=== PATIENT | female | born 1965 | race African-American/Black ===

== ENCOUNTER 2016-08-17 00:12 | Emergency (ER) | payer BC ==
[2016-08-17 00:34] VITALS: TEMP 98.5; BMI 36.0
[2016-08-17] MEDS ORDERED: ASPIRIN 81 MG CHEWABLE TABLETS PO ONE (00:37)
[2016-08-17] MEDS ORDERED: ADENOSINE 6 MG/2 ML VIAL IVPUSH ONE ×2 (00:37→00:38)
[2016-08-17] MEDS ORDERED: dilTIAZem HCL 30 MG TABLET (FP) ONE (00:40)
[2016-08-17] MEDS ORDERED: dilTIAZem HCL 125 MG/25 ML - 25 ML VIAL ONE (00:40)
[2016-08-17] MEDS ORDERED: dilTIAZem HCL 50 MG/10 ML - 10 ML VIAL IVPUSH ONE (00:46)
[2016-08-17] MEDS ORDERED: ASPIRIN 81 MG CHEWABLE TABLETS ONE (00:47)
[2016-08-17] MEDS ORDERED: dilTIAZem HCL 30 MG TABLET (FP) PO ONE (00:48)
[2016-08-17 00:49] VITALS: PULSE 78
[2016-08-17 00:49] LABS: BASOPHIL 1.2 % (0-2.0); EOSINOPHIL 3.1 % (0-4.5); MCH 30.5 pg (25.7-33.7); MCHC 32.8 g/dl (32.0-36.0); MEAN PLT VOLUME 8.2 fl (7.5-11.1); NEUTROPHILS 57.8 % (42.8-82.8); PLATELET COUNT 268 K/MM3 (134-434); RDW 14.4 % (11.6-15.6)
[2016-08-17 01:16] LABS: ALBUMIN 3.7 g/dl (3.4-5.0); ANION GAP 11 (8-16); BILIRUBIN,TOTAL 0.7 mg/dL (0.2-1.0); CO2 25 mmol/L (21-32); CREATININE 0.8 mg/dL (0.55-1.02); GLUCOSE,RANDOM 149 mg/dL (74-106); MAGNESIUM 2.2 mg/dL (1.8-2.4); PHOSPHOROUS 3.7 mg/dL (2.5-4.9); SGOT/AST 44 U/L (15-37); SGPT/ALT 44 U/L (12-78); TOT PROT 7.5 g/dl (6.4-8.2)
[2016-08-17 01:19] LABS: ALK PHOS 74 U/L (45-117); TROPONIN I < 0.02 ng/ml (0.00-0.05)
[2016-08-17 01:52] VITALS: BP 127/88
--- NOTE | 2016-08-17 01:53 | PDOC ---
History of Present Illness - History of Present Illness Initial Comments: 08/17/16 01:54 Patient is a 50 year old female with significant medical hx of SVT and MS who is presenting to the ED with palpitations since 7PM this evening. The patient reports she was sitting down having dinner when her heart began to flutter. The patient went upstairs to take her medication but her symptoms continued. She states that when her palpitations progressed, she began feeling short of breath and sweating profusely. PMD: Violet Kirkpatrick MD <Arti Freeman - Last Filed: 08/17/16 01:54> <Oscar Templeton - Last Filed: 08/17/16 02:53> - General Chief Complaint: Palpitations Stated Complaint: PALPITATIONS Past History <Arti Freeman - Last Filed: 08/17/16 01:54> - Past Medical History Cardiac Disorders: Yes (TACHYCARDIA.) CHF: No DVT: No - Surgical History Abdominal Surgery: No Appendectomy: No Cardiac Surgery: No - Psycho/Social/Smoking Cessation Hx Suicidal Ideation: No Smoking Status: No Smoking History: Never smoked Have you smoked in the past 12 months: No Number of Cigarettes Smoked Daily: 0 Hx Alcohol Use: No Drug/Substance Use Hx: Yes Substance Use Type: None Hx Substance Use Treatment: No <Oscar Templeton - Last Filed: 08/17/16 02:53> - Past Medical History Allergies/Adverse Reactions: Allergies Allergy/AdvReac Type Severity Reaction Status Date / Time Penicillins Allergy Swelling Verified 08/17/16 00:33 Home Medications: Ambulatory Orders Metoprolol Succinate [Toprol XL -] 50 mg PO DAILY 04/20/12 Review of Systems - Review of Systems Comments:: 08/17/16 01:54 GENERAL/CONSTITUTIONAL: Sweating. No fever or chills. No weakness. HEAD, EYES, EARS, NOSE AND THROAT: No change in vision. No ear pain or discharge. No sore throat. CARDIOVASCULAR: Palpitations, shortness of breath. No chest pain. RESPIRATORY: No cough, wheezing, or hemoptysis. GASTROINTESTINAL: No nausea, vomiting, diarrhea or constipation. GENITOURINARY: No dysuria, frequency, or change in urination. MUSCULOSKELETAL: No joint or muscle swelling or pain. No neck or back pain. SKIN: No rash NEUROLOGIC: No headache, vertigo, loss of consciousness, or change in strength/ sensation. <PeteArti - Last Filed: 08/17/16 01:54> *Physical Exam - Vital Signs Last Vital Signs Temp Pulse Resp BP Pulse Ox 98.5 F 78 16 127/88 100 08/17/16 00:33 08/17/16 01:52 08/17/16 01:52 08/17/16 01:52 08/17/16 01:52 - Physical Exam Comments: 08/17/16 01:55 GENERAL: Comfortable. Awake, alert, and fully oriented, in no acute distress HEAD: No signs of trauma EYES: PERRLA, EOMI, sclera anicteric, conjunctiva clear ENT: Auricles normal inspection, hearing grossly normal, nares patent, oropharynx clear without exudates. Moist mucosa NECK: Normal ROM, supple, no lymphadenopathy, JVD, or masses LUNGS: Breath sounds equal, clear to auscultation bilaterally. No wheezes, and no crackles HEART: Regular rate and rhythm, normal S1 and S2, no murmurs, rubs or gallops ABDOMEN: Soft, nontender, normoactive bowel sounds. No guarding, no rebound. No masses EXTREMITIES: Normal range of motion, no edema. No clubbing or cyanosis. No cords, erythema, or tenderness NEUROLOGICAL: Cranial nerves II through XII grossly intact. Normal speech, normal gait SKIN: Warm, Dry, normal turgor, no rashes or lesions noted. ENDOCRINE: No increased thirst. No abnormal weight change. HEMATOLOGIC/LYMPHATIC: No anemia, easy bleeding, or history of blood clots. ALLERGIC/IMMUNOLOGIC: No hives or skin allergy. <Arti Freeman - Last Filed: 08/17/16 01:54> - Vital Signs Last Vital Signs Temp Pulse Resp BP Pulse Ox 98.5 F 78 16 123/88 100 08/17/16 00:33 08/17/16 00:48 08/17/16 00:48 08/17/16 00:48 08/17/16 00:48 <Oscar Templeton - Last Filed: 08/17/16 02:53> ED Treatment Course - LABORATORY CBC & Chemistry Diagram: 08/17/16 00:33 08/17/16 00:33 - ADDITIONAL ORDERS Additional order review: Laboratory Results 08/17/16 08/17/16 00:33 00:33 INR 1.00 Sodium 143 Potassium 4.1 Chloride 107 Carbon Dioxide 25 Anion Gap 11 BUN 22 H D Creatinine 0.8 D Creat Clearance w eGFR > 60 Random Glucose 149 H Calcium 9.0 Phosphorus 3.7 Magnesium 2.2 Total Bilirubin 0.7 AST 44 H D ALT 44 D Alkaline Phosphatase 74 Creatine Kinase 127 Troponin I < 0.02 B-Natriuretic Peptide 120.43 Total Protein 7.5 Albumin 3.7 08/17/16 00:33 RBC 4.32 MCV 93.0 MCHC 32.8 RDW 14.4 MPV 8.2 Neutrophils % 57.8 Lymphocytes % 30.0 Monocytes % 7.9 Eosinophils % 3.1 D Basophils % 1.2 - Medications Given in the ED: ED Medications Discontinued Medications Generic Name Dose Route Start Last Admin Trade Name Jose Aq PRN Reason Stop Dose Admin Adenosine 6 mg 08/17/16 00:37 08/17/16 00:59 Adenocard - IVPUSH 08/17/16 00:38 Not Given ONCE ONE Aspirin 324 mg 08/17/16 00:37 08/17/16 00:46 Asa - PO 08/17/16 00:38 324 mg ONCE ONE Administration Diltiazem HCl 20 mg 08/17/16 00:46 08/17/16 00:46 Cardizem Injection - IVPUSH 08/17/16 00:47 20 mg NOW ONE Administration Diltiazem HCl 30 mg 08/17/16 00:48 08/17/16 00:48 Cardizem - PO 08/17/16 00:49 30 mg NOW ONE Administration <Arti Freeman - Last Filed: 08/17/16 01:54> - LABORATORY CBC & Chemistry Diagram: 08/17/16 00:33 08/17/16 00:33 - ADDITIONAL ORDERS Additional order review: Laboratory Results 08/17/16 08/17/16 00:33 00:33 INR 1.00 Sodium 143 Potassium 4.1 Chloride 107 Carbon Dioxide 25 Anion Gap 11 BUN 22 H D Creatinine 0.8 D Creat Clearance w eGFR > 60 Random Glucose 149 H Calcium 9.0 Phosphorus 3.7 Magnesium 2.2 Total Bilirubin 0.7 AST 44 H D ALT 44 D Alkaline Phosphatase 74 Creatine Kinase 127 Troponin I < 0.02 B-Natriuretic Peptide 120.43 Total Protein 7.5 Albumin 3.7 08/17/16 00:33 RBC 4.32 MCV 93.0 MCHC 32.8 RDW 14.4 MPV 8.2 Neutrophils % 57.8 Lymphocytes % 30.0 Monocytes % 7.9 Eosinophils % 3.1 D Basophils % 1.2 - Medications Given in the ED: ED Medications Discontinued Medications Generic Name Dose Route Start Last Admin Trade Name Chad PRN Reason Stop Dose Admin Adenosine 6 mg 08/17/16 00:37 08/17/16 00:59 Adenocard - IVPUSH 08/17/16 00:38 Not Given ONCE ONE Aspirin 324 mg 08/17/16 00:37 08/17/16 00:46 Asa - PO 08/17/16 00:38 324 mg ONCE ONE Administration Diltiazem HCl 20 mg 08/17/16 00:46 08/17/16 00:46 Cardizem Injection - IVPUSH 08/17/16 00:47 20 mg NOW ONE Administration Diltiazem HCl 30 mg 08/17/16 00:48 08/17/16 00:48 Cardizem - PO 08/17/16 00:49 30 mg NOW ONE Administration <Oscar Templeton S - Last Filed: 08/17/16 02:53> Medical Decision Making - Medical Decision Making 08/17/16 01:53 08/17/16 02:48 50yo F with SVT and palpitations with no other symptoms tonight. She had taken a metoprolol which did not help. She had been in SVT with likely Aflutter RVR and this was successfully treated with metoprolol 10mg IVP boluses; she has a negative evaluation and is now in NSR with no decompensation. She will be given ASA. I have discussed the case with the PMD who agrees the patient can be safely discharged at this time with follow up with the PMD within the next 12 hours. I have encouraged her to return if there is any change and to take another metoprolol tablet if there is any return of her palpitations. EKG and CXR reassuring. <Oscar Templeton S - Last Filed: 08/17/16 02:53> *DC/Admit/Observation/Transfer - Attestations Scribe Attestion: 08/17/16 01:55 Documentation prepared by Arti Freeman, acting as medical genetics director for Oscar Templeton MD. <Arti Freeman - Last Filed: 08/17/16 01:54> - Discharge Dispostion Admit: No Decision to Admit order Date/Time: 08/17/16 01:52 - Attestations Physician Attestion: 08/17/16 01:52 I, Dr. Oscar Templeton MD, attest that this document has been prepared under my direction and personally reviewed by me in its entirety. I further attest, that it accurately reflects all work, treatment, procedures and medical decision -making performed by me. <Oscar Templeton - Last Filed: 08/17/16 02:53> Diagnosis at time of Disposition: Paroxysmal SVT (supraventricular tachycardia) - Discharge Dispostion Disposition: HOME Condition at time of disposition: Good - Referrals Referrals: Violet Kirkpatrick MD [Primary Care Provider] - - Patient Instructions Additional Instructions: Please follow up with your PMD within the next 12 hours and if there is any change otherwise in your symptoms, please return immediately to the ED. - Post Discharge Activity Work/School Note: Back to Work
[2016-08-17 02:37] LABS: FREE T4 1.09 ng/dl (0.76-1.46); THYROID STIMULATING HORMONE 0.76 uIU/ml (0.358-3.74)
--- NOTE | 2016-08-18 17:12 | EKG ---
Test Reason : Blood Pressure : / mmHG Vent. Rate : 159 BPM Atrial Rate : 170 BPM P-R Int : 000 ms QRS Dur : 108 ms QT Int : 300 ms P-R-T Axes : 000 031 -18 degrees QTc Int : 488 ms SUPRAVENTRICULAR TACHYCARDIA INCOMPLETE RIGHT BUNDLE BRANCH BLOCK NONSPECIFIC T WAVE ABNORMALITY ABNORMAL ECG WHEN COMPARED WITH ECG OF 05-SEP-2014 09:32, VENT. RATE HAS INCREASED BY 96 BPM NOTE RHYTHM CHANGE Confirmed by GABRIEL WILLINGHAM MD ([id number]) on 08/18/2016 5:11:45 PM Referred By: Confirmed By:GABRIEL WILLINGHAM MD
--- NOTE | 2016-08-21 10:13 | EKG ---
Test Reason : Blood Pressure : / mmHG Vent. Rate : 082 BPM Atrial Rate : 082 BPM P-R Int : 172 ms QRS Dur : 096 ms QT Int : 366 ms P-R-T Axes : 050 027 000 degrees QTc Int : 427 ms NORMAL SINUS RHYTHM POSSIBLE LEFT ATRIAL ENLARGEMENT RSR' OR QR PATTERN IN V1 SUGGESTS RIGHT VENTRICULAR CONDUCTION DELAY NONSPECIFIC T WAVE ABNORMALITY ABNORMAL ECG Confirmed by AALIYAH GOYAL MD ([id number]) on 08/21/2016 10:13:06 AM Referred By: Confirmed By:AALIYAH GOYAL MD
--- NOTE | 2016-08-21 10:15 | EKG ---
Test Reason : Blood Pressure : / mmHG Vent. Rate : 088 BPM Atrial Rate : 082 BPM P-R Int : 162 ms QRS Dur : 094 ms QT Int : 342 ms P-R-T Axes : 052 030 -17 degrees QTc Int : 413 ms SINUS RHYTHM WITH MARKED SINUS ARRHYTHMIA WITH FUSION COMPLEXES Paroxysmal supraventricular tachycardia NONSPECIFIC T WAVE ABNORMALITY ABNORMAL ECG Confirmed by AALIYAH GOYAL MD ([id number]) on 08/21/2016 10:14:35 AM Referred By: Confirmed By:AALIYAH GOYAL MD
== END 2016-08-17 01:57 | disposition home or self-care (01) ==
LOC: JER 00:12
PROC: 3E033GC Introduction of Other Therapeutic Substance into Peripheral Vein, Percutaneous Approach (ICD-10-PCS; principal; 2016-08-17)
DX: I47.1 Supraventricular tachycardia (principal)
CPT/HCPCS: 36415; 80053; 82550; 83735; 83880; 84100; 84439; 84443; 84481; 84484; 85025; 85610; 86850; 86900; 86901; 93005; 93010; 99283-25

== ENCOUNTER 2017-01-24 22:30 | Emergency (ER) | payer BC ==
--- NOTE | 2017-01-24 22:36 | PDOC ---
History of Present Illness - General Chief Complaint: Tachycardia Stated Complaint: RAPID HEART BEAT Time Seen by Provider: 01/24/17 22:34 - History of Present Illness Initial Comments: This 51-year-old woman with a history of SVT and multiple sclerosis presents with 2 day history of palpitations. Patient states that yesterday morning she was awakened from her sleep at 5:30 AM with rapid heartbeat. She took her metoprolol and performed maneuvers as instructed by her licensed esthetician with resolution of the palpitations. She did well for the remainder of the day until 8:30 p.m. when palpitations recurred. She has had a rapid heart rate since then. She denies shortness of breath, lightheadedness. In the last few hours, she has had very mild substernal chest pressure. No recent change in medications, no change in diet, no recent acute febrile illness. Patient states that she last saw her licensed esthetician in May of this year and is scheduled to follow up in January. MS is currently in remission with no flareups in the last few years. Past History - Past Medical History Allergies/Adverse Reactions: Allergies Allergy/AdvReac Type Severity Reaction Status Date / Time Penicillins Allergy Swelling Verified 01/24/17 22:31 Home Medications: Ambulatory Orders Metoprolol Succinate [Toprol XL -] 50 mg PO DAILY 04/20/12 Cardiac Disorders: Yes (TACHYCARDIA.) CHF: No DVT: No - Surgical History Abdominal Surgery: No Appendectomy: No Cardiac Surgery: No - Psycho/Social/Smoking Cessation Hx Suicidal Ideation: No Smoking Status: No Smoking History: Never smoked Have you smoked in the past 12 months: No Number of Cigarettes Smoked Daily: 0 Hx Alcohol Use: No Drug/Substance Use Hx: Yes Substance Use Type: None Hx Substance Use Treatment: No Review of Systems - Review of Systems Able to Perform ROS?: Yes Comments:: 12 point review of systems is negative except for what is noted in the history of present illness *Physical Exam - Vital Signs Last Vital Signs Temp Pulse Resp BP Pulse Ox 98.5 F 79 18 110/72 100 01/24/17 22:32 01/24/17 23:56 01/24/17 23:56 01/24/17 23:56 01/24/17 23:56 - Physical Exam Comments: GENERAL: Adult female, alert and oriented 3, in no acute distress HEAD: Normal with no signs of trauma. EYES: PERRLA, EOMI, sclera anicteric, conjunctiva clear. ENT: Ears normal, nares patent, oropharynx clear without exudates. Dry mucous membranes. NECK: Normal range of motion, supple without lymphadenopathy, JVD, or masses. LUNGS: Breath sounds equal, clear to auscultation bilaterally. No wheezes, and no crackles. HEART:Regular rapid heart rate and rhythm, normal S1 and S2 without murmur, rub or gallop. ABDOMEN:.normal bowel sounds No guarding,tenderness or rebound.No masses No distention. EXTREMITIES: Normal range of motion, no edema. No clubbing or cyanosis. No erythema, or tenderness. NEUROLOGICAL: Cranial nerves II through XII grossly intact. Normal speech. No focal neurological deficits. MUSCULOSKELETAL: Back non-tender to palpation, no CVA tenderness SKIN: Warm, Dry, normal turgor, no rashes or lesions noted. ED Treatment Course - LABORATORY CBC & Chemistry Diagram: 01/24/17 22:46 01/24/17 22:46 - ADDITIONAL ORDERS Additional order review: Laboratory Results 01/24/17 01/24/17 22:46 22:46 INR 1.00 Sodium 137 Potassium 4.2 Chloride 108 H Carbon Dioxide 23 Anion Gap 6 L BUN 18 Creatinine 0.6 Creat Clearance w eGFR > 60 Random Glucose 114 H Calcium 9.3 Total Bilirubin 0.6 AST 50 H ALT 48 H Alkaline Phosphatase 65 Creatine Kinase 78 Troponin I < 0.03 L Total Protein 7.5 Albumin 3.9 01/24/17 22:46 RBC 4.42 MCV 96.2 H MCHC 32.8 RDW 13.4 MPV 8.3 Neutrophils % 44.5 Lymphocytes % 40.6 H Monocytes % 8.3 Eosinophils % 4.5 Basophils % 2.1 H - RADIOLOGY Radiology Studies Ordered: Category Date Time Status CHEST X-RAY PORTABLE* [RAD] Stat Radiology 01/24/17 22:37 Taken - Medications Given in the ED: ED Medications Discontinued Medications Generic Name Dose Route Start Last Admin Trade Name Freq PRN Reason Stop Dose Admin Adenosine 6 mg 01/24/17 23:06 01/24/17 23:00 Adenocard - IVPUSH 01/24/17 23:07 6 mg ONCE ONE Administration Medical Decision Making - Medical Decision Making 01/24/17 23:20 12-lead electrocardiogram performed. This shows narrow complex tachycardic rhythm at 153 bpm. Morphology of QRS complex identical to previous SVT seen in tracing dated 09/05/14. Patient given adenosine 6 milligrams rapid IV push with prompt resolution of SVT. The patient reports resolution of all symptoms (palpitations/mild chest discomfort). Repeat blood pressure after conversion of SVT is 111/85. Repeat 12-lead electrocardiogram shows normal sinus rhythm at 72 bpm; there are occasional PVCs ; T waves are inverted in V3 through V5 Portable chest x-ray reveals mild cardiomegaly without evidence of vascular congestion, infiltrates or effusion. Laboratory evaluation, including troponin levels show no significant abnormality except for mild elevation of transaminases, which patient has had previously. The patient states that she had stress echo in September of 2015 which was normal. 01/25/17 00:07 Repeat 12-lead electrocardiogram again shows normal sinus rhythm at 77 bpm; T- wave inversions are present in V3 through V6. Review of previous EKGs show that in 2010, the patient did have T-wave inversions V2 through V4 which were not subsequently seen. Most recent electrocardiogram post conversion showed some inferior lead inversions but no anterior lead inversions. Case discussed with , covering physician for patient's licensed esthetician, Dr.Nitin Durham. Since patient is asymptomatic now, troponin shows no elevation and patient had normal stress test approximately a year ago, patient can have repeat stress test by Dr. Durham within the next 24-48 hours. She can be discharged with follow-up with Dr. Durham. This was discussed with the patient who will not work tomorrow and call the office of Dr. Durham in the morning to arrange for follow-up appointment and repeat stress test. She should return to the emergency room if she has any recurrence of palpitations or chest pain/shortness of breath/lightheadedness. *DC/Admit/Observation/Transfer Diagnosis at time of Disposition: Paroxysmal SVT (supraventricular tachycardia) - Discharge Dispostion Disposition: HOME Condition at time of disposition: Stable - Patient Instructions Printed Discharge Instructions: Paroxysmal Supraventricular Tachycardia Additional Instructions: Continue medication as prescribed No work tomorrow Return to ER immediately if you have any further chest pain or palpitations Call 's office in the morning to arrange follow-up within 48 hours - Post Discharge Activity Work/School Note: Back to Work
[2017-01-24 22:45] VITALS: TEMP 98.5; BMI 34.9
[2017-01-24] MEDS ORDERED: ADENOSINE 6 MG/2 ML VIAL IVPUSH ONE ×2 (22:55→23:06)
[2017-01-24 23:09] LABS: ALBUMIN 3.9 g/dl (3.5-5.0); ALK PHOS 65 U/L (32-92); ANION GAP 6 (8-16); BILIRUBIN,TOTAL 0.6 mg/dl (0.2-1.0); CALCIUM 9.3 mg/dl (8.4-10.2); CO2 23 mmol/L (22-28); CPK 78 IU/L (26-192); CREATININE 0.6 mg/dl (0.6-1.3); GLUCOSE,RANDOM 114 mg/dl (74-106); SGOT/AST 50 U/L (10-42); SGPT/ALT 48 U/L (10-40); TOT PROT 7.5 g/dl (6.4-8.3)
[2017-01-24 23:13] LABS: MCH 31.6 pg (25.7-33.7); MCHC 32.8 g/dl (32.0-36.0); MEAN CELL VOLUME 96.2 fl (80-96); WHITE BLOOD COUNT 6.1 K/mm3 (4.0-10.8)
[2017-01-24 23:14] LABS: BASOPHIL 2.1 % (0-2.0); EOSINOPHIL 4.5 % (0-4.5); MEAN PLT VOLUME 8.3 fl (7.5-11.1); NEUTROPHILS 44.5 % (42.8-82.8); RDW 13.4 % (11.6-15.6)
[2017-01-24 23:22] LABS: PROTHROMBIN TIME (PATIENT) 11.2 SEC (10.2-13.0)
[2017-01-24 23:25] LABS: TROPONIN I (DFP) < 0.03 ng/ml (0.03-0.50)
[2017-01-24 23:57] VITALS: BP 110/72; PULSE 79
[2017-01-24] MEDS ORDERED: SODIUM CHLORIDE 1,000 ML IV ONE (23:58)
--- NOTE | 2017-01-25 17:44 | EKG ---
Test Reason : Blood Pressure : / mmHG Vent. Rate : 072 BPM Atrial Rate : 072 BPM P-R Int : 156 ms QRS Dur : 076 ms QT Int : 406 ms P-R-T Axes : 040 013 -20 degrees QTc Int : 444 ms SINUS RHYTHM WITH OCCASIONAL PREMATURE VENTRICULAR COMPLEXES POSSIBLE LEFT ATRIAL ENLARGEMENT WHEN COMPARED WITH ECG OF 24-JAN-2017 22:37, SINUS RHYTHM HAS REPLACED ATRIAL FLUTTER VENT. RATE HAS DECREASED BY [address] NOW DEPRESSED IN INFERIOR LEADS ST ELEVATION NOW PRESENT IN LATERAL LEADS Confirmed by MD STEPHANE, SURENDRA ([id number]) on 01/25/2017 5:44:03 PM Referred By: MD TORRES Confirmed By:SURENDRA CALDERÓN MD
--- NOTE | 2017-01-25 17:44 | EKG ---
Test Reason : Blood Pressure : / mmHG Vent. Rate : 077 BPM Atrial Rate : 077 BPM P-R Int : 164 ms QRS Dur : 084 ms QT Int : 406 ms P-R-T Axes : 050 014 -19 degrees QTc Int : 459 ms NORMAL SINUS RHYTHM T WAVE ABNORMALITY, CONSIDER ANTERIOR ISCHEMIA WHEN COMPARED WITH ECG OF 24-JAN-2017 23:07, PREMATURE VENTRICULAR COMPLEXES ARE NO LONGER PRESENT Confirmed by MD STEPHANE, SURENDRA ([id number]) on 01/25/2017 5:43:46 PM Referred By: MD TORRES Confirmed By:SURENDRA CALDERÓN MD
--- NOTE | 2017-01-26 19:51 | EKG ---
Test Reason : Blood Pressure : / mmHG Vent. Rate : 153 BPM Atrial Rate : 306 BPM P-R Int : 000 ms QRS Dur : 086 ms QT Int : 292 ms P-R-T Axes : 000 026 -16 degrees QTc Int : 466 ms POOR DATA QUALITY, INTERPRETATION MAY BE ADVERSELY AFFECTED ATRIAL FLUTTER WITH 2:1 A-V CONDUCTION VS REENTRANT SUPRAVENTRICULAR TACHYCARDIA INCOMPLETE RBBB NONSPECIFIC ST AND T WAVE ABNORMALITY ABNORMAL ECG WHEN COMPARED WITH ECG OF 17-AUG-2016 00:45, RHYTHM CHANGED ABOVE. FOLLOW UP TRACING IS RECOMMENDED Confirmed by AISHA COHEN MD ([id number]) on 01/26/2017 7:50:42 PM Referred By: MELISSA Confirmed By:AISHA COHEN MD
== END 2017-01-25 00:14 | disposition home or self-care (01) ==
LOC: FER 22:30
PROC: 3E033GC Introduction of Other Therapeutic Substance into Peripheral Vein, Percutaneous Approach (ICD-10-PCS; principal; 2017-01-24)
PROC: 3E0337Z Introduction of Electrolytic and Water Balance Substance into Peripheral Vein, Percutaneous Approach (ICD-10-PCS; 2017-01-24)
DX: I47.1 Supraventricular tachycardia (principal)
CPT/HCPCS: 36415; 71010-TC; 80053; 84484; 85025; 85610; 93005; 93010; 99282-25

== ENCOUNTER 2017-03-05 23:51 | Emergency (ER) | payer BC ==
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
[2017-03-06 00:15] VITALS: TEMP 98.4; BMI 35.4
[2017-03-06 00:24] VITALS: BP 125/80
[2017-03-06 01:15] LABS: BASOPHIL 0.6 % (0-2.0); MCH 31.2 pg (25.7-33.7); MCHC 32.6 g/dl (32.0-36.0); MEAN CELL VOLUME 95.6 fl (80-96); MEAN PLT VOLUME 8.1 fl (7.5-11.1); NEUTROPHILS 53.5 % (42.8-82.8); PLATELET COUNT 237 K/MM3 (134-434); RDW 13.9 % (11.6-15.6); WHITE BLOOD COUNT 6.1 K/mm3 (4.0-10.0)
[2017-03-06 01:28] LABS: INR 1.01 (0.82-1.09); PROTHROMBIN TIME (PATIENT) 11.1 SEC (9.98-11.88)
[2017-03-06 01:40] LABS: ALBUMIN 3.4 g/dl (3.4-5.0); ALK PHOS 71 U/L (45-117); ANION GAP 9 (8-16); BILIRUBIN,TOTAL 0.5 mg/dL (0.2-1.0); CALCIUM 9.1 mg/dL (8.5-10.1); CO2 27 mmol/L (21-32); CREATININE 0.7 mg/dL (0.55-1.02); GLUCOSE,RANDOM 121 mg/dL (74-106); SGOT/AST 55 U/L (15-37); SGPT/ALT 63 U/L (12-78); TOT PROT 7.3 g/dl (6.4-8.2)
[2017-03-06 01:41] LABS: TROPONIN I 0.03 ng/ml (0.00-0.05)
[2017-03-06 01:57] VITALS: PULSE 83
--- NOTE | 2017-03-06 18:54 | EKG ---
Test Reason : Blood Pressure : / mmHG Vent. Rate : 083 BPM Atrial Rate : 083 BPM P-R Int : 166 ms QRS Dur : 086 ms QT Int : 378 ms P-R-T Axes : 056 031 -16 degrees QTc Int : 444 ms NORMAL SINUS RHYTHM EARLY TRANSITION IN V2,TRUE POSTERIOR WALL OK CANNOT BE EXCLUDED T WAVE ABNORMALITY, CONSIDER ANTERIOR ISCHEMIA ABNORMAL ECG WHEN COMPARED WITH ECG OF 24-JAN-2017 23:48, NONSPECIFIC T WAVE ABNORMALITY, WORSE IN LATERAL LEADS REPEAT EKG IF CLINICALLY INDICATED Confirmed by AISHA COHEN MD ([id number]) on 03/06/2017 6:54:07 PM Referred By: DR GUEVARA Confirmed By:AISHA COHEN MD
== END 2017-03-06 02:04 | disposition home or self-care (01) ==
LOC: FER 23:51
DX: I47.1 Supraventricular tachycardia (principal)
CPT/HCPCS: 36415; 80053; 84484; 85025; 85610; 93005; 99282-25

== ENCOUNTER 2020-12-26 21:59 | Emergency (ER) | payer BC ==
[2020-12-26 22:23] VITALS: TEMP 98.3; BMI 25.0
[2020-12-26] MEDS ORDERED: ADENOSINE 6 MG/2 ML VIAL IVPUSH ONE ×2 (22:38→22:43)
[2020-12-26 22:50] VITALS: BP 104/73; PULSE 78
[2020-12-26 23:30] LABS: ALBUMIN 3.8 g/dl (3.4-5.0); ALK PHOS 60 U/L (45-117); ANION GAP 10 MMOL/L (8-16); CALCIUM 8.7 mg/dl (8.5-10); CHLORIDE 101 mmol/L (98-107); CO2 20 mmol/L (21-32); CREATININE 0.8 mg/dl (0.55-1.3); GLUCOSE,RANDOM 124 mg/dl (74-106); SGOT/AST 83 U/L (15-37); SGPT/ALT 89 U/L (13-61); SODIUM 131 mmol/L (136-145)
== END 2020-12-27 01:18 | disposition home or self-care (01) ==
LOC: FER 21:59
DX: I47.1 Supraventricular tachycardia (principal)
CPT/HCPCS: 36415; 80053; 82550; 84484; 93005; 99284-25